=== PATIENT | female | born 1965 | race Caucasian/White ===

== ENCOUNTER → 2017-02-02 | Outpatient (REF) | payer OTHER | LOC: M SFHCWAGY 10:15 | PROVIDERS: ATTEND Nurse Practitioner Women's Health | DX: Z12.4 Encounter for screening for malignant neoplasm of cervix (principal) ==

== ENCOUNTER → 2017-02-02 | Outpatient (CLI) | payer OTHER ==
--- NOTE | 2017-02-02 10:14 | REPMRS ---
Patient History The patient states she had a clinical breast exam in 01/2017. Family history of colorectal cancer in paternal grandmother at age 50, ovarian cancer in maternal grandmother, and breast cancer in maternal cousin under age 50. Taking hormonal contraceptives for 16 years. Digital Woman Screen Mammo: February 02, 2017 - Exam #: [id number] Bilateral CC and MLO view(s) were taken. Technologist: Pauly Westbrook, Technologist Prior study comparison: February 02, 2016, digital woman screen mammo performed at [facility]. January 27, 2015, digital woman screen mammo performed at [facility]. FINDINGS: There are scattered fibroglandular densities. There has been no change in the appearance of the mammogram from the prior studies. There is a moderate amount of residual fibroglandular tissue which is moderate density and fairly symmetric. There is no interval development of dominant mass, architectural distortion, or clustered microcalcification suggestive of malignancy. No significant changes when compared with prior studies. ASSESSMENT: BI-RADS/ACR category 1 mammogram. Negative. Recommendation Routine screening mammogram in 1 year (for women over age 40). This mammogram was interpreted with the aid of an FDA-approved computer-aided dectection system. A. Negative x-ray reports should not delay biopsy if a dominant or clinically suspicious mass is present. B. Four to eight percent of cancers are not identified by mammography. C. Adenosis and dense breast may obscure an underlying neoplasm. Electronically Signed By: Brennon Zhong MD 02/02/17 [id number]
== END ==
LOC: M WHC 09:10
PROVIDERS: ATTEND Nurse Practitioner Women's Health
DX: Z12.31 Encounter for screening mammogram for malignant neoplasm of breast (principal); Z79.3 Long term (current) use of hormonal contraceptives

== ENCOUNTER 2017-11-20 06:53 | Day surgery (SDC) | payer OTHER ==
[2017-11-20] MEDS: NS 1,000 ML IV (07:00)
[2017-11-20] MEDS ORDERED: SIMETHICONE 40MG/0.6ML DROPS 30ML As Ordered (07:40)
[2017-11-20] MEDS ORDERED: LIDOCAINE 2% INJ 100 MG/5 ML SDV (FOR ANES.) As Ordered (08:03)
[2017-11-20] MEDS ORDERED: PROPOFOL 200 MG/20 ML VIAL As Ordered ×3 (08:03)
== END 2017-11-20 08:53 | disposition home or self-care (01) ==
LOC: M OPP 06:53
DX: Z12.11 Encounter for screening for malignant neoplasm of colon (principal); Z83.71 Family history of colonic polyps; K64.0 First degree hemorrhoids; R12 Heartburn; K22.8 Other specified diseases of esophagus; K44.9 Diaphragmatic hernia without obstruction or gangrene; K21.9 Gastro-esophageal reflux disease without esophagitis; G43.909 Migraine, unspecified, not intractable, without status migrainosus; Z79.899 Other long term (current) drug therapy
CPT/HCPCS: 45378

== ENCOUNTER → 2018-02-05 | Outpatient (REF) | payer OTHER | LOC: M SFHCWAGY 09:36 | DX: Z12.4 Encounter for screening for malignant neoplasm of cervix (principal); Z12.31 Encounter for screening mammogram for malignant neoplasm of breast | CPT/HCPCS: G0123 ==

== ENCOUNTER → 2018-02-05 | Outpatient (CLI) | payer OTHER | LOC: M WHC 09:03 | DX: Z12.31 Encounter for screening mammogram for malignant neoplasm of breast (principal); Z80.3 Family history of malignant neoplasm of breast | CPT/HCPCS: 77067 ==

== ENCOUNTER → 2019-02-06 | Outpatient (CLI) | payer OTHER ==
[~2019-02-06] MED LIST: AVIATAB; FISH100049 PO; LORA-243 PO; OMEP20CA3; [UNRECOGNIZED DRUG - OTHER] PO
--- NOTE | 2019-02-06 11:06 | REPMRS ---
Patient History The patient states she had a clinical breast exam in 02/2019. Family history of ovarian cancer in maternal grandmother, colorectal cancer at age 50 in paternal grandmother, breast cancer under age 50 in maternal cousin, breast cancer under age 50 in niece. Taking hormonal contraceptives for 18 years. 3D TOMOSYNTHESIS WAS PERFORMED. Digital Woman Screen Mammo: February 06, 2019 - Exam #: [id number] Bilateral CC and MLO view(s) were taken. Technologist: Christine Loredo, Technologist Prior study comparison: February 05, 2018, digital woman screen mammo performed at [facility]. February 02, 2017, digital woman screen mammo performed at [facility]. FINDINGS: The breast tissue is heterogeneously dense. This may lower the sensitivity of mammography. There has been no change in the appearance of the mammogram from the prior studies. There is a moderate amount of residual fibroglandular tissue which is fairly symmetric. There is no interval development of dominant mass, areas of architectural distortion, or clustered microcalcification typical of malignancy. Assessment: BI-RADS/ACR category 1 mammogram. Negative Mammogram. Recommendation Routine screening mammogram in 1 year (for women over age 40). This mammogram was interpreted with the aid of an FDA-approved computer-aided dectection system. Electronically Signed By: Charlie Fall MD 02/06/19 [id number]
== END ==
LOC: M WHC 09:15
PROVIDERS: ATTEND Nurse Practitioner Women's Health
DX: Z12.31 Encounter for screening mammogram for malignant neoplasm of breast (principal)

== ENCOUNTER → 2019-02-18 | Outpatient (CLI) | payer OTHER ==
--- NOTE | 2019-02-18 09:51 | REP ---
Pelvic sonography: History: Nausea. Irregular cycles. Findings: Transabdominal and transvaginal scanning are performed. Uterine dimensions are normal at 8.7 x 3.8 x 5.2 cm. Endometrial echo 0.8 cm thick. There is a Nabothian cyst. No focal uterine mass is seen. No free fluid is noted. Visualized bladder keys are smooth. The right ovary measures 3.4 x 1.7 x 3.5 cm. There is a 2.1 centimeter follicle in the right ovary. The left ovary is normal measuring 1.8 x 1.4 x 2.8 cm. Impression: Normal pelvic sonography. Electronically Signed by Vasquez Moore MD 02/18/2019 09:43 A
== END ==
LOC: M WHC 08:57
PROVIDERS: ATTEND Nurse Practitioner Women's Health
DX: N92.0 Excessive and frequent menstruation with regular cycle (principal)

== ENCOUNTER → 2020-04-27 | Outpatient (REF) | payer OTHER ==
[~2020-04-27] MED LIST changes: +OMEP1CAP73; -OMEP20CA3
== END ==
LOC: M SFHCWAGY 17:10
PROVIDERS: ATTEND Nurse Practitioner Women's Health
DX: Z12.4 Encounter for screening for malignant neoplasm of cervix (principal)

== ENCOUNTER → 2020-04-27 | Outpatient (CLI) | payer OTHER ==
--- NOTE | 2020-05-01 11:10 | REPMRS ---
Patient History The patient states she had a clinical breast exam in April 2020. Family history of ovarian cancer in maternal grandmother, colorectal cancer at age 50 in paternal grandmother, breast cancer under age 50 in maternal cousin, breast cancer under age 50 in niece. Taking hormonal contraceptives for 18 years. VOLPARA DENSITY C. 3D TOMOSYNTHESIS WAS PERFORMED. [facility] lifetime risk for breast cancer is 9.1%. Digital Woman Screen Mammo: April 27, 2020 - Exam #: [id number] Bilateral CC and MLO view(s) were taken. Technologist: Shayna De La Torre, Technologist Prior study comparison: February 06, 2019, bilateral digital woman screen mammo performed at [facility]. February 05, 2018, digital woman screen mammo performed at [facility]. FINDINGS: The breast tissue is heterogeneously dense. This may lower the sensitivity of mammography. There has been no change in the appearance of the mammogram from the prior studies. There is a moderate amount of residual fibroglandular tissue which is fairly symmetric. There is no interval development of dominant mass, areas of architectural distortion, or clustered microcalcification typical of malignancy. Assessment: BI-RADS/ACR category 1 mammogram. Negative Mammogram. Recommendation Routine screening mammogram in 1 year (for women over age 40). This mammogram was interpreted with the aid of an FDA-approved computer-aided dectection system. Electronically Signed By: Charlie Fall MD 04/27/20 [id number]
== END ==
LOC: M WHC 09:36
PROVIDERS: ATTEND Nurse Practitioner Women's Health
DX: Z12.31 Encounter for screening mammogram for malignant neoplasm of breast (principal); Z80.41 Family history of malignant neoplasm of ovary; Z80.0 Family history of malignant neoplasm of digestive organs; Z80.3 Family history of malignant neoplasm of breast

== ENCOUNTER 2020-09-11 19:26 | Emergency (ER) | payer OTHER ==
[~2020-09-11] VITALS: Ht 157.5 cm; Wt 57.6 kg
[2020-09-11 19:27] VITALS: BP 156/72
== END 2020-09-11 21:55 | disposition home or self-care (01) ==
LOC: M ED 19:26
DX: S01.01XA Laceration without foreign body of scalp, initial encounter (principal); V40.5XXA Car driver injured in collision with pedestrian or animal in traffic accident, initial encounter; Y92.9 Unspecified place or not applicable; Y93.9 Activity, unspecified; Y99.9 Unspecified external cause status; Z79.899 Other long term (current) drug therapy

== ENCOUNTER → 2021-05-18 | Outpatient (REF) | payer OTHER | LOC: M SMT 19:30 | PROVIDERS: ATTEND Nurse Practitioner Women's Health | DX: Z12.4 Encounter for screening for malignant neoplasm of cervix (principal) ==

== ENCOUNTER → 2021-05-18 | Outpatient (CLI) | payer OTHER | LOC: M WHC 13:59 | PROVIDERS: ATTEND Nurse Practitioner Women's Health | DX: Z12.31 Encounter for screening mammogram for malignant neoplasm of breast (principal) ==

== ENCOUNTER → 2021-06-03 | Outpatient (CLI) | payer OTHER ==
[2021-06-03 15:09] LABS: FOLLICLE STIMULATING HORMONE 20.8 mIU/mL; LUTEINIZING HORMONE 7.2 mIU/mL
== END ==
LOC: M PLALAB 12:21
PROVIDERS: ATTEND Nurse Practitioner Women's Health
DX: N91.2 Amenorrhea, unspecified (principal)

== ENCOUNTER → 2022-02-03 | Outpatient (CLI) | payer OTHER ==
[2022-02-03 14:35] LABS: HEMOGLOBIN 11.5 g/dl (12.0-15.5); MEAN CORPUSCULAR HEMOGLOBIN 29.3 pg (27.0-33.0); MEAN CORPUSCULAR HGB CONC 32.9 g/dl (32.0-36.5); MEAN CORPUSCULAR VOLUME 89.1 fl (80.0-96.0); PLATELET COUNT, AUTOMATED 329 10^3/uL (150-450); RED BLOOD COUNT 3.93 10^6/uL (4.00-5.40); WHITE BLOOD COUNT 6.1 10^3/uL (4.0-10.0)
[2022-02-03 15:57] LABS: ESTRADIOL 50.2 PG/ML; FOLLICLE STIMULATING HORMONE 41.5 mIU/mL; FREE T4 0.97 NG/DL (0.76-1.46); LUTEINIZING HORMONE 13.4 mIU/mL; THYROID STIMULATING HORMONE 2.06 uIU/ML (0.358-3.740)
== END ==
LOC: M PLALAB 12:01
PROVIDERS: ATTEND Advanced Practice Midwife
DX: N92.0 Excessive and frequent menstruation with regular cycle (principal)

== ENCOUNTER → 2022-02-10 | Outpatient (CLI) | payer OTHER | LOC: M WHC 13:51 | PROVIDERS: ATTEND Advanced Practice Midwife | DX: N92.0 Excessive and frequent menstruation with regular cycle (principal) ==

== ENCOUNTER → 2022-05-25 | Outpatient (CLI) | payer OTHER | LOC: M PLALAB 11:06 | PROVIDERS: ATTEND Advanced Practice Midwife | DX: Z80.3 Family history of malignant neoplasm of breast (principal); Z83.71 Family history of colonic polyps ==

== ENCOUNTER → 2022-05-25 | Outpatient (CLI) | payer OTHER, SELFPAY | LOC: M WHC 08:24 | PROVIDERS: ATTEND Advanced Practice Midwife | DX: Z12.31 Encounter for screening mammogram for malignant neoplasm of breast (principal) ==

== ENCOUNTER → 2022-11-11 | Outpatient (REF) | payer OTHER | LOC: M PLALAB 11:10 | PROVIDERS: ATTEND Advanced Practice Midwife | DX: N92.0 Excessive and frequent menstruation with regular cycle (principal) ==

== ENCOUNTER 2023-04-26 08:04 | Day surgery (SDC) | payer OTHER ==
[~2023-04-26] VITALS: Ht 154.9 cm; Wt 62.0 kg
[~2023-04-26 08:04] MED LIST changes: +LIDOCAINE 2% 100MG/5ML SDV (FOR ANES.) As Ordered ONE; +NORE1TAB86 PO; +NS 1,000 ML IV ONE; -OMEP1CAP73; +OMEP1CAP73 PO; +propofoL 500 MG/50 ML VIAL As Ordered ONE
[2023-04-26] MEDS ORDERED: fentaNYL 100 MCG/2 ML INJECTION As Ordered ONE (08:49)
[2023-04-26 10:04] VITALS: TEMP 97.5
[2023-04-26 10:23] VITALS: BP 139/77; O2SAT 96
== END 2023-04-26 10:32 | disposition home or self-care (01) ==
LOC: M OPP 08:04
PROVIDERS: ATTEND Internal Medicine Gastroenterology
DX: Z12.11 Encounter for screening for malignant neoplasm of colon (principal); Z86.010 Personal history of colon polyps; Z83.71 Family history of colonic polyps; Z80.0 Family history of malignant neoplasm of digestive organs; K64.0 First degree hemorrhoids; K22.89 Other specified disease of esophagus; K44.9 Diaphragmatic hernia without obstruction or gangrene; Z79.1 Long term (current) use of non-steroidal anti-inflammatories (NSAID); Z79.3 Long term (current) use of hormonal contraceptives; Z79.899 Other long term (current) drug therapy
CPT/HCPCS: 43239; 45378; 88305; J3010

== ENCOUNTER → 2023-07-13 | Outpatient (CLI) | payer OTHER ==
[~2023-07-13] MED LIST changes: -LIDOCAINE 2% 100MG/5ML SDV (FOR ANES.) As Ordered ONE; -NS 1,000 ML IV ONE; -propofoL 500 MG/50 ML VIAL As Ordered ONE
[2023-07-13 14:33] LABS: FOLLICLE STIMULATING HORMONE 12.1 mIU/ML; LUTEINIZING HORMONE 3.8 mIU/ML; PROGESTERONE < 0.21 NG/ML
== END ==
LOC: M PLALAB 10:59
PROVIDERS: ATTEND Advanced Practice Midwife
DX: Z01.419 Encounter for gynecological examination (general) (routine) without abnormal findings (principal)

== ENCOUNTER → 2023-07-13 | Outpatient (CLI) | payer OTHER | LOC: M WHC 09:22 | PROVIDERS: ATTEND Advanced Practice Midwife | DX: Z12.31 Encounter for screening mammogram for malignant neoplasm of breast (principal) ==

== ENCOUNTER → 2024-08-22 | Outpatient (CLI) | payer OTHER ==
[~2024-08-22] MED LIST changes: +NORE-30 PO; -NORE1TAB86 PO
[2024-08-22 18:35] LABS: FOLLICLE STIMULATING HORMONE 19.5 mIU/ML; LUTEINIZING HORMONE 11.2 mIU/ML
[2024-08-22 18:36] LABS: PROGESTERONE < 0.21 NG/ML
== END ==
LOC: M PLALAB 14:38
PROVIDERS: ATTEND Advanced Practice Midwife
DX: N95.1 Menopausal and female climacteric states (principal); Z30.41 Encounter for surveillance of contraceptive pills

== ENCOUNTER → 2024-08-29 | Outpatient (REF) | payer OTHER ==
[2024-09-02 12:27] LABS: HPV APTIMA Not Detected (Not Detected)
== END ==
LOC: M PLALAB 13:54
PROVIDERS: ATTEND Advanced Practice Midwife
DX: Z12.4 Encounter for screening for malignant neoplasm of cervix (principal); B37.9 Candidiasis, unspecified
CPT/HCPCS: 87624; G0123

== ENCOUNTER → 2024-08-29 | Outpatient (CLI) | payer OTHER | LOC: M WHC 10:58 | PROVIDERS: ATTEND Advanced Practice Midwife | DX: Z12.31 Encounter for screening mammogram for malignant neoplasm of breast (principal); R92.323 Mammographic fibroglandular density, bilateral breasts ==

== ENCOUNTER → 2025-09-04 | Outpatient (CLI) | payer OTHER | LOC: M WHC 10:17 | PROVIDERS: ATTEND Advanced Practice Midwife | DX: Z12.31 Encounter for screening mammogram for malignant neoplasm of breast (principal); R92.323 Mammographic fibroglandular density, bilateral breasts ==